=== PATIENT | female | born 1960 | race Two or more races ===

== ENCOUNTER 2016-12-08 17:40 | Inpatient (IN) | payer MEDICAID ==
[~2016-12-08] VITALS: Ht 162.6 cm; Wt 91.2 kg
[~2016-12-08 17:40] MED LIST: ALL100T PO; ASPI81CH4 PO; ATO40T PO; B-CO-5 PO; CARV12.544 PO; FER325T PO; FURO80TA3 PO; METO-75 PO; SODI650T PO
[2016-12-08 18:59] LABS: Basophils # (auto) 0 uL; Basophils % (auto) 0.4 % (0.0-2.0); DEFINITIVE VIEW TRANSMISSION; Eosinophils # (auto) 0.2 uL; Eosinophils % (auto) 3.5 % (0.0-7.0); Hemoglobin 9.6 g/dL (12.2-16.2); Lymphocytes % (auto) 15.3 % (10.0-50.0); Mean Corpuscular Hemoglobin 31.8 pg (28.0-32.0); Mean Corpuscular Volume 102.5 fL (80.0-100.0); Mean Platelet Volume 8.6 fL (7.4-10.4); Monocytes # (auto) 0.4 uL; Monocytes % (auto) 5.9 % (0.0-12.0); Neutrophils % (auto) 74.9 % (37.0-80.0); Platelet Count (auto) 106 10^3/uL (140-450); Red Cell Distribution Width 20.4 % (11.6-16.0); White Blood Cell 6.7 10^3/uL (4.4-10.8)
[2016-12-08 19:18] LABS: Albumin 3.1 g/dL (3.4-5.0); BUN/Creatinine Ratio 10.2; Bilirubin, Total 0.4 mg/dL (0.2-1.0); Calcium 8.3 mg/dL (8.5-10.1); Magnesium 2.5 mg/dL (1.6-2.6); Potassium 4.5 mmol/L (3.5-5.1); Total Protein 6.4 g/dL (6.4-8.2)
[2016-12-08] MEDS ORDERED: ONDANSETRON HCL 4 MG/2 ML VIAL IV PRN (23:30)
[2016-12-08] MEDS ORDERED: ACETAMINOPHEN 325 MG TAB PO PRN (23:30)
[2016-12-08] MEDS ORDERED: NITROGLYCERIN 0.4 MG SL TAB SL PRN (23:30)
[2016-12-08] MEDS ORDERED: MORPHINE SULF INJ 2 MG/ML SYRINGE 1ML IV PRN (23:30)
[2016-12-08] MEDS ORDERED: TEMAZEPAM 15 MG CAP PO PRN (23:30)
[2016-12-09] VITALS (7 sets, daily range): BP systolic 115–143; BP diastolic 55–70
[2016-12-09] MEDS ORDERED: DEXTROSE (50%) 50ML SYRG IV PRN (02:15)
[2016-12-09] MEDS: InsuLIN REG 1unit/0.01ml Soln (100units/ml) SC SCH ×4 (06:00→23:25)
[2016-12-09] MEDS: ACCU-CHEK COMFORT CURVE STRIP VI SCH ×4 (06:00→23:20)
[2016-12-09] MEDS: HYDROcodone-ACET 5/325MG TAB PO PRN (06:43)
[2016-12-09 06:49] LABS: Basophils # (auto) 0 uL; DEFINITIVE VIEW TRANSMISSION; Eosinophils # (auto) 0 uL; Eosinophils % (auto) 0.3 % (0.0-7.0); Hematocrit 30.3 % (36.0-46.0); Hemoglobin 9.5 g/dL (12.2-16.2); Lymphocytes # (auto) 0.9 uL; Lymphocytes % (auto) 7.5 % (10.0-50.0); Mean Corpuscular Hemoglobin 31.9 pg (28.0-32.0); Mean Corpuscular Hgb Conc. 31.3 g/dL (32.0-36.0); Mean Corpuscular Volume 101.7 fL (80.0-100.0); Mean Platelet Volume 8.9 fL (7.4-10.4); Monocytes # (auto) 0.5 uL; Monocytes % (auto) 4.1 % (0.0-12.0); Neutrophils # (auto) 10.3 uL; Neutrophils % (auto) 88.1 % (37.0-80.0); Platelet Count (auto) 105 10^3/uL (140-450); Red Cell Distribution Width 19.4 % (11.6-16.0); White Blood Cell 11.7 10^3/uL (4.4-10.8)
[2016-12-09 06:58] LABS: Albumin 3.1 g/dL (3.4-5.0); BUN/Creatinine Ratio 10.4; Calcium 8.2 mg/dL (8.5-10.1); Potassium 5.3 mmol/L (3.5-5.1)
[2016-12-09 07:09] LABS: Bilirubin, Total 0.6 mg/dL (0.2-1.0); Total Protein 6.4 g/dL (6.4-8.2)
[2016-12-09] MEDS: FERROUS SULFATE 325 MG TAB PO SCH ×2 (08:00→17:56)
[2016-12-09 08:02] LABS: Anisocytosis Slight; Macrocytosis Slight; Platelet Estimate Decreased
[2016-12-09] MEDS: SODIUM BICARBONATE 650 MG TAB PO SCH ×2 (09:52→21:53)
[2016-12-09] MEDS: ALLOPURINOL 100 MG TAB PO SCH (09:53)
[2016-12-09] MEDS: CALCIUM ACETATE 667 MG CAP PO SCH ×3 (09:54→17:56)
[2016-12-09] MEDS: FAMOTIDINE 20 MG TAB PO SCH (09:54)
[2016-12-09] MEDS: CARVEDILOL 12.5 MG TAB PO SCH ×2 (09:58→21:55)
[2016-12-09] MEDS: FUROSEMIDE 40 MG TAB PO SCH (09:59)
[2016-12-09] MEDS: ENOXAPARIN SOD 30 MG/0.3 ML SYRINGE SC SCH (09:59)
[2016-12-09] MEDS ORDERED: FAMOTIDINE 20 MG TAB PO SCH (10:00)
[2016-12-09] MEDS ORDERED: SODIUM POLYSTYRENE SULF 15GM/60ML SUSP PO ONE (11:00)
[2016-12-09] MEDS: ATORVASTATIN 20 MG TAB PO SCH (21:54)
[2016-12-10] VITALS (59 sets, daily range): BP systolic 86–188; BP diastolic 41–99
[2016-12-10] MEDS ORDERED: SODIUM CHL 0.9% 1000 ML BAG XX ONE (04:00)
[2016-12-10] MEDS ORDERED: EPOETIN ALFA 10,000 UNIT/1 ML VIAL IV ONE (04:00)
[2016-12-10] MEDS: InsuLIN REG 1unit/0.01ml Soln (100units/ml) SC SCH ×3 (06:00→18:28)
[2016-12-10] MEDS: ACCU-CHEK COMFORT CURVE STRIP VI SCH ×3 (06:00→18:27)
[2016-12-10 06:10] LABS: Basophils # (auto) 0 uL; Basophils % (auto) 0.4 % (0.0-2.0); DEFINITIVE VIEW TRANSMISSION; Eosinophils # (auto) 0.2 uL; Eosinophils % (auto) 2.6 % (0.0-7.0); Hematocrit 26.9 % (36.0-46.0); Hemoglobin 8.2 g/dL (12.2-16.2); Lymphocytes # (auto) 1.9 uL; Lymphocytes % (auto) 23.8 % (10.0-50.0); Mean Corpuscular Hemoglobin 31.4 pg (28.0-32.0); Mean Corpuscular Hgb Conc. 30.5 g/dL (32.0-36.0); Mean Corpuscular Volume 102.8 fL (80.0-100.0); Mean Platelet Volume 9.1 fL (7.4-10.4); Monocytes # (auto) 0.7 uL; Neutrophils # (auto) 5.1 uL; Neutrophils % (auto) 64.2 % (37.0-80.0); Platelet Count (auto) 94 10^3/uL (140-450); White Blood Cell 7.9 10^3/uL (4.4-10.8)
[2016-12-10 06:14] LABS: Potassium 4.1 mmol/L (3.5-5.1)
[2016-12-10 06:29] LABS: Albumin 2.6 g/dL (3.4-5.0); BUN/Creatinine Ratio 10.5; Bilirubin, Total 0.5 mg/dL (0.2-1.0); Calcium 7.6 mg/dL (8.5-10.1); Total Protein 5.9 g/dL (6.4-8.2)
[2016-12-10 06:41] LABS: Red Cell Distribution Width 20.4 % (11.6-16.0)
[2016-12-10] MEDS: FERROUS SULFATE 325 MG TAB PO SCH ×3 (08:00→18:00)
[2016-12-10] MEDS: CALCIUM ACETATE 667 MG CAP PO SCH ×3 (08:08→18:00)
[2016-12-10] MEDS: HYDROcodone-ACET 5/325MG TAB PO PRN (08:08)
[2016-12-10] MEDS ORDERED: MIDAZOLAM HCL 5 MG/ML-1ML VIAL ONE (09:56)
[2016-12-10] MEDS: CARVEDILOL 12.5 MG TAB PO SCH ×2 (10:00→23:02)
[2016-12-10] MEDS: ALLOPURINOL 100 MG TAB PO SCH (10:00)
[2016-12-10] MEDS: FUROSEMIDE 40 MG TAB PO SCH (10:00)
[2016-12-10] MEDS: FAMOTIDINE 20 MG TAB PO SCH (10:00)
[2016-12-10] MEDS: SODIUM BICARBONATE 650 MG TAB PO SCH ×2 (10:00→22:30)
[2016-12-10] MEDS ORDERED: MIDAZOLAM DRIP 100 mg/100mL NS 100 ML IV ONE (10:01)
[2016-12-10] MEDS ORDERED: EPINEPHrine HCL 1 MG/10 ML SYRG IV ONE (10:10)
[2016-12-10] MEDS ORDERED: AMIODARONE HCL (50 MG/ ML) 3 ML VIAL IV ONE (10:10)
[2016-12-10] MEDS ORDERED: SODIUM BICARBONATE 8.4% INJ 50ML SYRINGE IV ONE (10:10)
[2016-12-10] MEDS: MIDAZOLAM DRIP 100 mg/100mL NS 100 ML IV SCH ×4 (10:28→20:49)
[2016-12-10] MEDS ORDERED: AMIODARONE HCL 150 MG in D5W 5% 100 ML IV ONE (10:30)
[2016-12-10] MEDS ORDERED: AMIODARONE HCL 900 MG in DEXTROSE 500 ML IV SCH (10:45)
[2016-12-10] MEDS: ENOXAPARIN SOD 30 MG/0.3 ML SYRINGE SC SCH (11:00)
[2016-12-10] MEDS ORDERED: cefTRIAXone 1GM/50ML D5W 50 ML IV ONE (11:00)
[2016-12-10] MEDS ORDERED: AZITHROMYCIN 500MG/D5W 250ML 250 ML IV ONE (11:00)
[2016-12-10 11:20] LABS: Anisocytosis Slight; Macrocytosis Slight; Platelet Estimate Decreased
[2016-12-10 13:37] LABS: Albumin 2.6 g/dL (3.4-5.0); Calcium 7.2 mg/dL (8.5-10.1); Magnesium 2.1 mg/dL (1.6-2.6); Potassium 4.3 mmol/L (3.5-5.1)
[2016-12-10 13:39] LABS: BUN/Creatinine Ratio 10.8
[2016-12-10 13:41] LABS: Basophils # (auto) 0 uL; Basophils % (auto) 0.2 % (0.0-2.0); DEFINITIVE VIEW TRANSMISSION; Eosinophils # (auto) 0.1 uL; Eosinophils % (auto) 0.9 % (0.0-7.0); Hematocrit 29.5 % (36.0-46.0); Hemoglobin 9.1 g/dL (12.2-16.2); Lymphocytes # (auto) 0.7 uL; Lymphocytes % (auto) 6.1 % (10.0-50.0); Mean Corpuscular Hemoglobin 31.7 pg (28.0-32.0); Mean Corpuscular Volume 102.4 fL (80.0-100.0); Mean Platelet Volume 8.8 fL (7.4-10.4); Monocytes # (auto) 0.5 uL; Monocytes % (auto) 4.7 % (0.0-12.0); Neutrophils # (auto) 9.8 uL; Neutrophils % (auto) 88.1 % (37.0-80.0); Platelet Count (auto) 110 10^3/uL (140-450); Red Cell Distribution Width 19.7 % (11.6-16.0); SUSPECT VIEW TRANSMISSION; White Blood Cell 11.1 10^3/uL (4.4-10.8)
[2016-12-10 13:56] LABS: Anisocytosis Slight; Macrocytosis Slight; Platelet Estimate Decreased
[2016-12-10 14:16] LABS: Bilirubin, Total 0.7 mg/dL (0.2-1.0)
[2016-12-10 18:21] LABS: Phosphorus 6.5 mg/dL (2.5-4.90)
[2016-12-10] MEDS: fentaNYL Drip 2500mCg/250mlNS 250 ML IV SCH (20:00)
[2016-12-10] MEDS ORDERED: PIPERACILLIN-TAZOB 0.75 GM in D5W 5% 50 ML IV SCH (21:45)
[2016-12-10] MEDS: PIPERACILLIN-TAZOB 2.25GM 50 ML IV SCH (22:30)
[2016-12-10] MEDS: ATORVASTATIN 20 MG TAB PO SCH (22:30)
[2016-12-11] VITALS (106 sets, daily range): BP systolic 71–156; BP diastolic 35–118
[2016-12-11] MEDS: ACCU-CHEK COMFORT CURVE STRIP VI SCH ×5 (00:11→21:11)
[2016-12-11 03:57] LABS: Basophils # (auto) 0.1 uL; Basophils % (auto) 0.6 % (0.0-2.0); DEFINITIVE VIEW TRANSMISSION; Eosinophils # (auto) 0.1 uL; Eosinophils % (auto) 1.5 % (0.0-7.0); Hematocrit 26.4 % (36.0-46.0); Hemoglobin 8.2 g/dL (12.2-16.2); Lymphocytes # (auto) 1.9 uL; Lymphocytes % (auto) 20.2 % (10.0-50.0); Mean Corpuscular Hgb Conc. 31.1 g/dL (32.0-36.0); Mean Corpuscular Volume 102.9 fL (80.0-100.0); Mean Platelet Volume 9.1 fL (7.4-10.4); Monocytes # (auto) 0.6 uL; Monocytes % (auto) 6.1 % (0.0-12.0); Neutrophils # (auto) 6.6 uL; Neutrophils % (auto) 71.6 % (37.0-80.0); Platelet Count (auto) 111 10^3/uL (140-450); Red Cell Distribution Width 19.6 % (11.6-16.0); White Blood Cell 9.3 10^3/uL (4.4-10.8)
[2016-12-11 04:24] LABS: Albumin 2.4 g/dL (3.4-5.0); Calcium 7.1 mg/dL (8.5-10.1); Potassium 4.3 mmol/L (3.5-5.1)
[2016-12-11 04:28] LABS: BUN/Creatinine Ratio 11.2; Bilirubin, Total 0.5 mg/dL (0.2-1.0); Total Protein 5.4 g/dL (6.4-8.2)
[2016-12-11] MEDS: PIPERACILLIN-TAZOB 2.25GM 50 ML IV SCH ×3 (05:48→21:10)
[2016-12-11] MEDS: InsuLIN REG 1unit/0.01ml Soln (100units/ml) SC SCH ×5 (05:49→21:37)
[2016-12-11] MEDS: FERROUS SULFATE 325 MG TAB PO SCH ×2 (07:40→18:00)
[2016-12-11] MEDS: CALCIUM ACETATE 667 MG CAP PO SCH ×2 (07:41→11:47)
[2016-12-11] MEDS ORDERED: cefTRIAXone 1GM/50ML D5W 50 ML IV SCH (09:00)
[2016-12-11] MEDS: ALLOPURINOL 100 MG TAB PO SCH (10:00)
[2016-12-11] MEDS: CARVEDILOL 12.5 MG TAB PO SCH (10:00)
[2016-12-11] MEDS: FAMOTIDINE 20 MG TAB PO SCH (10:00)
[2016-12-11] MEDS ORDERED: AZITHROMYCIN 500MG/D5W 250ML 250 ML IV SCH (10:00)
[2016-12-11] MEDS: FUROSEMIDE 40 MG TAB PO SCH (10:00)
[2016-12-11] MEDS: ENOXAPARIN SOD 30 MG/0.3 ML SYRINGE SC SCH (10:46)
[2016-12-11] MEDS: AMIODARONE HCL 900 MG in DEXTROSE 500 ML IV SCH (10:50)
[2016-12-11] MEDS: SODIUM BICARBONATE 650 MG TAB PO SCH (11:46)
[2016-12-11 12:46] LABS: Vitamin B12 623 pg/mL (211-911)
[2016-12-11 12:47] LABS: Temperature: 22.3 C (20.0-25.0)
[2016-12-11] MEDS: SODIUM CHLORIDE 0.9% 1,000 ML IV SCH (13:30)
[2016-12-11] MEDS ORDERED: SODIUM CHL 0.9% 1000 ML BAG XX ONE (13:30)
[2016-12-11] MEDS: ALBUMIN 25% 100 ML IV SCH ×2 (14:08→21:11)
[2016-12-11] MEDS ORDERED: MIDODRINE HCL 10 MG TAB NG PRN (17:30)
[2016-12-11] MEDS: fentaNYL Drip 2500mCg/250mlNS 250 ML IV SCH ×2 (18:55→20:30)
[2016-12-12] VITALS (102 sets, daily range): BP systolic 74–167; BP diastolic 39–89
[2016-12-12 04:00] LABS: Basophils # (auto) 0.2 uL; Basophils % (auto) 2.1 % (0.0-2.0); DEFINITIVE VIEW TRANSMISSION; Eosinophils # (auto) 0.4 uL; Eosinophils % (auto) 4.7 % (0.0-7.0); Hematocrit 23.9 % (36.0-46.0); Hemoglobin 7.5 g/dL (12.2-16.2); Lymphocytes # (auto) 1.7 uL; Lymphocytes % (auto) 21.2 % (10.0-50.0); Mean Corpuscular Hgb Conc. 31.3 g/dL (32.0-36.0); Mean Platelet Volume 9.6 fL (7.4-10.4); Monocytes # (auto) 0.7 uL; Monocytes % (auto) 9.1 % (0.0-12.0); Neutrophils # (auto) 5.1 uL; Neutrophils % (auto) 62.9 % (37.0-80.0); Platelet Count (auto) 91 10^3/uL (140-450); White Blood Cell 8.1 10^3/uL (4.4-10.8)
[2016-12-12 04:21] LABS: Potassium 3.8 mmol/L (3.5-5.1)
[2016-12-12 04:28] LABS: Albumin 2.7 g/dL (3.4-5.0); BUN/Creatinine Ratio 11.1; Bilirubin, Total 0.6 mg/dL (0.2-1.0); Calcium 7.1 mg/dL (8.5-10.1); Total Protein 5.7 g/dL (6.4-8.2)
[2016-12-12 04:43] LABS: Red Cell Distribution Width 20.3 % (11.6-16.0)
[2016-12-12 05:30] LABS: Anisocytosis Slight; Macrocytosis Slight; Platelet Estimate Decreased
[2016-12-12] MEDS: ACCU-CHEK COMFORT CURVE STRIP VI SCH ×3 (05:40→18:00)
[2016-12-12] MEDS: InsuLIN REG 1unit/0.01ml Soln (100units/ml) SC SCH ×3 (05:40→18:00)
[2016-12-12] MEDS: PIPERACILLIN-TAZOB 2.25GM 50 ML IV SCH ×3 (05:40→22:10)
[2016-12-12] MEDS: SODIUM CHLORIDE 0.9% 1,000 ML IV SCH ×2 (05:41→22:50)
[2016-12-12] MEDS: MIDAZOLAM DRIP 100 mg/100mL NS 100 ML IV SCH ×3 (05:41→22:08)
[2016-12-12] MEDS: ALBUMIN 25% 100 ML IV SCH ×3 (05:44→22:00)
[2016-12-12] MEDS: fentaNYL Drip 2500mCg/250mlNS 250 ML IV SCH (06:36)
[2016-12-12] MEDS: FERROUS SULFATE 325 MG TAB PO SCH ×2 (08:17→18:00)
[2016-12-12] MEDS: AMIODARONE HCL 900 MG in DEXTROSE 500 ML IV SCH (09:22)
[2016-12-12] MEDS ORDERED: SODIUM CHL 0.9% 1000 ML BAG XX ONE (10:00)
[2016-12-12] MEDS: ENOXAPARIN SOD 30 MG/0.3 ML SYRINGE SC SCH (10:09)
[2016-12-12] MEDS: FAMOTIDINE 20 MG TAB PO SCH (10:09)
[2016-12-12] MEDS ORDERED: PIPERACILLIN-TAZOB 3.375GM 100 ML IV ONE (13:30)
[2016-12-12] MEDS ORDERED: MIDODRINE HCL 10 MG TAB PO PRN (18:00)
[2016-12-13] VITALS (88 sets, daily range): BP systolic 53–163; BP diastolic 20–93
[2016-12-13] MEDS: ACCU-CHEK COMFORT CURVE STRIP VI SCH ×4 (00:02→18:00)
[2016-12-13] MEDS: fentaNYL Drip 2500mCg/250mlNS 250 ML IV SCH (00:20)
[2016-12-13 03:55] LABS: Basophils # (auto) 0.1 uL; Basophils % (auto) 0.7 % (0.0-2.0); DEFINITIVE VIEW TRANSMISSION; Eosinophils # (auto) 0.3 uL; Eosinophils % (auto) 4.1 % (0.0-7.0); Hematocrit 25.9 % (36.0-46.0); Lymphocytes # (auto) 1.3 uL; Lymphocytes % (auto) 16.3 % (10.0-50.0); Monocytes # (auto) 0.6 uL; Monocytes % (auto) 7.6 % (0.0-12.0); Neutrophils # (auto) 5.9 uL; Neutrophils % (auto) 71.3 % (37.0-80.0); Platelet Count (auto) 97 10^3/uL (140-450); White Blood Cell 8.2 10^3/uL (4.4-10.8)
[2016-12-13 04:03] LABS: Red Cell Distribution Width 20.3 % (11.6-16.0)
[2016-12-13 04:11] LABS: Albumin 3.1 g/dL (3.4-5.0); Calcium 7.6 mg/dL (8.5-10.1); Potassium 4.2 mmol/L (3.5-5.1)
[2016-12-13 04:13] LABS: BUN/Creatinine Ratio 9.8
[2016-12-13 04:26] LABS: Anisocytosis Slight; Ovalocytes FEW; Platelet Estimate Decreased
[2016-12-13] MEDS: InsuLIN REG 1unit/0.01ml Soln (100units/ml) SC SCH ×4 (06:00→18:00)
[2016-12-13] MEDS: ALBUMIN 25% 100 ML IV SCH (06:00)
[2016-12-13] MEDS: PIPERACILLIN-TAZOB 2.25GM 50 ML IV SCH ×3 (06:12→21:16)
[2016-12-13] MEDS: SODIUM CHLORIDE 0.9% 1,000 ML IV SCH (06:12)
[2016-12-13] MEDS: ENOXAPARIN SOD 30 MG/0.3 ML SYRINGE SC SCH (09:41)
[2016-12-13] MEDS: FAMOTIDINE 20 MG TAB PO SCH (09:41)
[2016-12-13] MEDS: FERROUS SULFATE 325 MG TAB PO SCH ×2 (09:41→18:06)
[2016-12-13] MEDS ORDERED: SODIUM CHL 0.9% 1000 ML BAG XX ONE (11:00)
[2016-12-13] MEDS ORDERED: EPOETIN ALFA 10,000 UNIT/1 ML VIAL IV ONE (11:00)
[2016-12-13] MEDS ORDERED: MIDODRINE HCL 10 MG TAB PO ONE (11:00)
[2016-12-13] MEDS ORDERED: ALBUMIN 25% 100 ML IV ONE (12:22)
[2016-12-13] MEDS ORDERED: ALBUMIN 25% 200 ML IV ONE (13:15)
[2016-12-14] VITALS (75 sets, daily range): BP systolic 131–170; BP diastolic 64–100
[2016-12-14 04:00] LABS: Basophils # (auto) 0 uL; Basophils % (auto) 0.5 % (0.0-2.0); DEFINITIVE VIEW TRANSMISSION; Eosinophils # (auto) 0.2 uL; Hematocrit 29.1 % (36.0-46.0); Lymphocytes % (auto) 12.7 % (10.0-50.0); Mean Corpuscular Hemoglobin 31.1 pg (28.0-32.0); Mean Corpuscular Volume 100.2 fL (80.0-100.0); Mean Platelet Volume 8.9 fL (7.4-10.4); Monocytes # (auto) 0.6 uL; Monocytes % (auto) 7.7 % (0.0-12.0); Neutrophils % (auto) 77.1 % (37.0-80.0); Platelet Count (auto) 101 10^3/uL (140-450); Red Cell Distribution Width 19.2 % (11.6-16.0); SUSPECT VIEW TRANSMISSION; White Blood Cell 7.7 10^3/uL (4.4-10.8)
[2016-12-14 04:15] LABS: Potassium 4.5 mmol/L (3.5-5.1)
[2016-12-14 04:21] LABS: Albumin 3.1 g/dL (3.4-5.0); BUN/Creatinine Ratio 9.9; Calcium 7.8 mg/dL (8.5-10.1)
[2016-12-14 04:24] LABS: Bilirubin, Total 1.1 mg/dL (0.2-1.0); Total Protein 6.1 g/dL (6.4-8.2)
[2016-12-14 04:51] LABS: Anisocytosis Slight; Platelet Estimate Decreased
[2016-12-14 04:52] LABS: Ovalocytes FEW
[2016-12-14] MEDS: InsuLIN REG 1unit/0.01ml Soln (100units/ml) SC SCH ×4 (06:00→17:55)
[2016-12-14] MEDS: PIPERACILLIN-TAZOB 2.25GM 50 ML IV SCH ×3 (06:00→22:43)
[2016-12-14] MEDS: ACCU-CHEK COMFORT CURVE STRIP VI SCH ×4 (06:00→17:55)
[2016-12-14] MEDS: SODIUM CHLORIDE 0.9% 1,000 ML IV SCH (08:10)
[2016-12-14] MEDS ORDERED: EPINEPHrine HCL 1 MG/10 ML SYRG IV ONE (10:22)
[2016-12-14] MEDS ORDERED: SODIUM BICARBONATE 8.4% INJ 50ML SYRINGE IV ONE (10:22)
[2016-12-14] MEDS: FAMOTIDINE 20 MG TAB PO SCH (10:28)
[2016-12-14] MEDS: ENOXAPARIN SOD 30 MG/0.3 ML SYRINGE SC SCH (10:28)
[2016-12-14] MEDS: FERROUS SULFATE 325 MG TAB PO SCH ×2 (10:28→17:55)
[2016-12-15] VITALS: BP 137/78
[2016-12-15 00:04] VITALS: BP 133/77
[2016-12-15 00:30] VITALS: BP 124/72
[2016-12-15 01:00] VITALS: BP 108/66
[2016-12-15] MEDS ORDERED: DEXTROSE 10% 1,000 ML IV ONE (01:00)
[2016-12-15 01:30] VITALS: BP 117/66
[2016-12-15 02:00] VITALS: BP 131/78
== END 2016-12-15 02:41 | disposition short-term general hospital (02) | DRG 460 ==
LOC: EDUNIT# 17:40 → ER 17:48 → TELE 17:49 → TELE-WESTW 12-09 00:07 → ICU WEST 12-10 12:34
PROVIDERS: ADMIT Nurse Practitioner; ATTEND Internal Medicine
PROC: 5A09357 Assistance with Respiratory Ventilation, Less than 24 Consecutive Hours, Continuous Positive Airway Pressure (ICD-10-PCS; principal; 2016-12-09)
PROC: 5A1955Z Respiratory Ventilation, Greater than 96 Consecutive Hours (ICD-10-PCS; 2016-12-10)
PROC: 0BH17EZ Insertion of Endotracheal Airway into Trachea, Via Natural or Artificial Opening (ICD-10-PCS; 2016-12-10)
PROC: 30233N1 Transfusion of Nonautologous Red Blood Cells into Peripheral Vein, Percutaneous Approach (ICD-10-PCS; 2016-12-12)
PROC: 5A1D00Z (ICD-10-PCS; 2016-12-13)
DX: I12.0 Hypertensive chronic kidney disease with stage 5 chronic kidney disease or end stage renal disease (principal); J96.00 Acute respiratory failure, unspecified whether with hypoxia or hypercapnia; I46.9 Cardiac arrest, cause unspecified; E11.22 Type 2 diabetes mellitus with diabetic chronic kidney disease; N18.6 End stage renal disease; E11.42 Type 2 diabetes mellitus with diabetic polyneuropathy; E66.01 Morbid (severe) obesity due to excess calories; E44.1 Mild protein-calorie malnutrition; I51.7 Cardiomegaly; D63.8 Anemia in other chronic diseases classified elsewhere; E78.5 Hyperlipidemia, unspecified; G47.10 Hypersomnia, unspecified; E87.5 Hyperkalemia; I25.10 Atherosclerotic heart disease of native coronary artery without angina pectoris; I25.5 Ischemic cardiomyopathy; K21.9 Gastro-esophageal reflux disease without esophagitis; M10.9 Gout, unspecified; Z82.49 Family history of ischemic heart disease and other diseases of the circulatory system; Z83.3 Family history of diabetes mellitus; Z95.0 Presence of cardiac pacemaker; Z95.1 Presence of aortocoronary bypass graft; Z95.810 Presence of automatic (implantable) cardiac defibrillator; I25.2 Old myocardial infarction; Z99.2 Dependence on renal dialysis; Z88.5 Allergy status to narcotic agent; Z68.34 Body mass index [BMI] 34.0-34.9, adult; Z82.61 Family history of arthritis
CPT/HCPCS: 36415; 36600; 70450; 71010; 80053; 82607; 82746; 82805; 82962; 83735; 84100; 84484; 85025; 86850; 86900; 86901; 86920; 87070; 87081; 87205; 90935; 93005; 93306; 93886; 94002; 94003; 94660; 95819; A4565; J0696; J0885; J1642; J1815; J2250; J2543; J3010